=== PATIENT | male | born 1970 | race Caucasian/White ===

== ENCOUNTER 2019-10-22 12:22 | Observation (INO) | payer BC ==
[2019-10-22] MEDS ORDERED: NALOXONE 0.4 MG/ML 1 ML VIAL IV PRN (15:47)
[2019-10-22] MEDS ORDERED: HYDROcodone/APAP 5-325MG 1 EACH TAB PO PRN (15:48)
[2019-10-22] MEDS ORDERED: ACETAMINOPHEN TAB 500 MG TAB PO PRN (15:48)
[2019-10-22] MEDS ORDERED: ALPRAZolam 0.25 MG TAB PO PRN (15:48)
[2019-10-22] MEDS ORDERED: TEMAZEPAM 15 MG CAP PO PRN (15:48)
[2019-10-22] MEDS ORDERED: SODIUM CHLORIDE 0.9% 1,000 ML IV SCH (16:00)
[2019-10-22 16:09] LABS: Basophils % (A) 0 %; Eosinophils # (A) 0.1 k/uL (0-0.7); Eosinophils % (A) 1 %; HCT 47.8 % (39.0-53.0); Lymphocytes # (A) 1.6 k/uL (1.0-4.8); Lymphocytes % (A) 22 %; MCH 30.4 pg (25.0-35.0); MCHC 33.4 g/dL (31.0-37.0); Monocytes # (A) 0.3 k/uL (0-1.0); Monocytes % (A) 4 %; Neutrophils # (A) 5.1 k/uL (1.3-7.7); Neutrophils % (A) 71 %; Platelet Count 225 k/uL (150-450); RBC 5.26 m/uL (4.30-5.90); WBC 7.1 k/uL (3.8-10.6)
[2019-10-22 16:24] LABS: ALT 16 U/L (4-49); AST 22 U/L (17-59); African American GFR (CKD) >90 (>60 ml/min/1.73 sqM); Albumin 4.2 g/dL (3.5-5.0); Alkaline Phosphatase 54 U/L (38-126); Anion Gap 6 mmol/L; Blood Urea Nitrogen 11 mg/dL (9-20); Calcium 9.3 mg/dL (8.4-10.2); Carbon Dioxide 30 mmol/L (22-30); Chloride 104 mmol/L (98-107); Glucose 95 mg/dL (74-99); Non-African American GFR(CKD) >90 (>60 ml/min/1.73 sqM); Sodium 140 mmol/L (137-145); Total Protein 6.9 g/dL (6.3-8.2)
[2019-10-22 19:29] VITALS: RESP 18
--- NOTE | 2019-10-22 19:42 | CT ---
EXAMINATION TYPE: CT brain wo con DATE OF EXAM: 10/22/2019 COMPARISON: None HISTORY: Seizure like activity. CT DLP: 1070.4 mGycm Automated exposure control for dose reduction was used. ventricles have normal size. There is no mass effect nor midline shift. There is no sign of intracran ial hemorrhage. Calvarium is intact. I see no bony destructive process. IMPRESSION: Negative CT scan of the brain.
[2019-10-22] MEDS: HEPARIN SODIUM,PORCINE 5,000 UNIT/ML 1 ML VIAL SQ SCH (20:26)
--- NOTE | 2019-10-22 21:26 | HP ---
HISTORY AND PHYSICAL DATE OF SERVICE: 10/22/2019 CHIEF COMPLAINT: Chest pain and possible seizure. HISTORY OF PRESENT ILLNESS: This 49-year-old gentleman with a past medical history of no significant medical issues, to be followed by Dr. Yoan Meza in the outpatient setting apparently was complaining of chest pain which is felt in the anterior part of chest towards the epigastrium yesterday. The patient went to take a drink and apparently patient found the patient on floor and had some tonic spasms, possible seizure disorder, and currently the patient was taken to [facility] where Balta performed basic evaluations which were negative. The D-dimer is apparently slightly elevated, but CT was negative for pulmonary embolism and the patient admitted for further evaluation and treatment. The patient has history of smoking 1 pack of cigarettes per day. There is no history of fever, rigors. No history of any palpitations, hematochezia or melena at this time. PAST MEDICAL HISTORY: No history of cardiovascular illness. MEDICATIONS: None. ALLERGIES: MAYONNAISE. FAMILY HISTORY: Family history of coronary artery disease in some other relatives. SOCIAL HISTORY: History of smoking 1 pack per day. No history of alcohol. REVIEW OF SYSTEMS: ENT: No diminished vision. No diminished hearing. Cardiovascular as mentioned earlier. Respiratory: As mentioned earlier. GI no nausea or vomiting. no dysuria. Nervous system: No numbness or weakness. Allergy/Immunology: No asthma or hayfever. MUSCULOSKELETAL as mentioned earlier. Hematology/Oncology: No history of anemia. ENDOCRINE: No history of diabetes or hypothyroidism. CONSTITUTIONAL: As mentioned earlier. DERMATOLOGY: Negative. RHEUMATOLOGY negative. PSYCHIATRY as mentioned earlier. PHYSICAL EXAM: Patient is alert, oriented times three. Pulse 74. Blood pressure 117/70, respiration 17, temperature 98.2, pulse ox 98% on room air. HEENT: Conjunctivae normal. Oral mucosa moist. Neck is no jugular venous distention. No carotid bruit. No lymph node enlargement. Cardiovascular system: S1, S2 muffled. No S3, no S4. RESPIRATORY: Breath sounds diminished in the bases. No rhonchi. No crackles. ABDOMEN: Soft, nontender. No mass palpable. LEGS: No edema. No swelling. NERVOUS SYSTEM: Higher functions as mentioned earlier. Moves all 4 limbs. No focal motor-sensory deficits. LYMPHATICS: No lymph nodes palpable in the neck, axillae or groin. SKIN: No ulcer. No rashes. No bleeding. JOINTS: No active deforming arthropathy. LAB STUDIES: Total bilirubin is 2, otherwise other labs are normal. ASSESSMENT: 1. Chest pain for evaluation, possible unstable angina. 2. Rule out seizure disorder, generalized tonic-clonic. 3. 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 4. History of nicotine dependence. RECOMMENDATIONS AND DISCUSSION: In this 49-year-old gentleman who presented with multiple medical issues, we will monitor the patient closely. I recommend rule out myocardial infarction and unstable angina protocol. If the troponins are negative, we will consult Cardiology for possible stress test in the morning. I would also recommend neurology consultation because of the exact etiology of unresponsiveness and tonic spasms are not known and need to rule out seizures. Recommend EEG and CT scan of the brain also to complete the workup. Once again, the prognosis guarded. Further recommendations to follow. See orders for details. Discussed with the patient's family who understands and agrees. A copy of this dictating being forwarded to Dr. Meza who is the primary physician. MMODL / IJN: [id number] /
[2019-10-23 06:43] LABS: Amphetamine Screen,Urine Not Detected (NotDetected); Barbiturate Screen,Urine Not Detected (NotDetected); Benzodiazepines Screen,Urine Not Detected (NotDetected); Cocaine Screen,Urine Not Detected (NotDetected); Methadone Screen, Urine Not Detected (NotDetected); Opiate Screen,Urine Not Detected (NotDetected); Oxycodone Screen, Urine Not Detected (NotDetected); Phencyclidine Screen,Urine Not Detected (NotDetected); Tricyclic Antidepressant,Urine Not Detected (NotDetected); Urn Cannabinoid Scrn Not Detected (NotDetected)
--- NOTE | 2019-10-23 06:57 | P.CRDCN ---
History of Present Illness Consult date: 10/23/19 Chief complaint: Chest pain/shortness of breath History of present illness: This is a very pleasant 49-year-old gentleman who lives in [place] was transferred to [facility] for further evaluation and management. The patient doesn't have any significant past medical history of coronary artery disease, diabetes, hypertension, or dyslipidemia. He was in his usual state of health until Tuesday when he was at home and he was trying to have a drink of energy and the last thing he remember that he was laying in bed was found by his . At that point he did not seek any medical attention. The following day, on Tuesday, he was at work when he started experiencing discomfort in the mid of the chest, as a sharp/dull discomfort, without any radiation to the arms or neck or shoulders, and without any associated symptoms of shortness of breath, dizziness, heart racing, or syncope. At that point also he was experiencing shortness of breath. No sweating. He decided to go to the emergency room at [place]. In the emergency room he was seen and transferred here. The EKG revealed sinus rhythm without significant ST or T-wave abnormalities. He underwent only one set of enzymes came in to be unremarkable. The computed tomography scan of the brain did not show any acute abnormalities. Currently the patient is chest pain-free and he seems to be asymptomatic from a cardiovascular standpoint overview. No arrhythmia noted overnight. Past Medical History History of Any Multi-Drug Resistant Organisms: None Reported Past Surgical History: No Surgical Hx Reported Past Anesthesia/Blood Transfusion Reactions: No Reported Reaction Past Psychological History: No Psychological Hx Reported Smoking Status: Current every day smoker Additional Past Alcohol Use History / Comment(s): pt staets he smokes a pack- pack and half per day. Past Drug Use History: None Reported Medications and Allergies Home Medications Medication Instructions Recorded Confirmed Type No Known Home Medications 10/22/19 10/22/19 History Allergies Allergy/AdvReac Type Severity Reaction Status Date / Time [facility] Allergy Rash/Hives Verified 10/22/19 14:56 Physical Exam Vitals: Vital Signs Temp Pulse Resp BP Pulse Ox 10/23/19 04:00 97.7 F 63 18 108/64 96 10/22/19 23:27 18 10/22/19 23:16 98 F 66 18 104/51 96 10/22/19 20:00 18 10/22/19 19:28 98.1 F 63 18 126/65 95 10/22/19 16:00 98.2 F 74 17 117/70 96 10/22/19 14:30 68 14 10/22/19 14:29 98.0 F 68 14 142/81 98 Intake and Output 10/22/19 10/22/19 10/23/19 14:59 22:59 06:59 Other: Voiding Method Toilet Toilet Toilet # Voids 1 1 Weight 90.4 kg - Constitutional General appearance: no acute distress - Respiratory Respiratory: bilateral: CTA - Cardiovascular Rhythm: regular Heart sounds: normal: S1, S2 Results 10/22/19 16:00 10/22/19 16:00 Cardiac Enzymes 10/22/19 10/22/19 Range/Units 16:00 16:00 AST 22 (17-59) U/L Troponin I <0.012 (0.000-0.034) ng/mL CBC 10/22/19 Range/Units 16:00 WBC 7.1 (3.8-10.6) k/uL RBC 5.26 (4.30-5.90) m/uL Hgb 16.0 (13.0-17.5) gm/dL Hct 47.8 (39.0-53.0) % Plt Count 225 (150-450) k/uL Comprehensive Metabolic Panel 10/22/19 Range/Units 16:00 Sodium 140 (137-145) mmol/L Potassium 4.0 (3.5-5.1) mmol/L Chloride 104 (98-107) mmol/L Carbon Dioxide 30 (22-30) mmol/L BUN 11 (9-20) mg/dL Creatinine 0.95 (0.66-1.25) mg/dL Glucose 95 (74-99) mg/dL Calcium 9.3 (8.4-10.2) mg/dL AST 22 (17-59) U/L ALT 16 (4-49) U/L Alkaline Phosphatase 54 (38-126) U/L Total Protein 6.9 (6.3-8.2) g/dL Albumin 4.2 (3.5-5.0) g/dL Current Medications Generic Name Dose Route Start Last Admin Trade Name Freq PRN Reason Stop Dose Admin Acetaminophen 500 mg 10/22/19 15:48 Tylenol Tab PO Q6HR PRN Fever and/ or Pain Hydrocodone Bitart/Acetaminophen 1 each 10/22/19 15:48 [place] 5-325 PO Q6HR PRN Pain Alprazolam 0.25 mg 10/22/19 15:48 Xanax PO TID PRN Anxiety Heparin Sodium (Porcine) 5,000 unit 10/22/19 21:00 10/22/19 20:26 Heparin SQ 5,000 unit Q12HR MARJORIE Administration Sodium Chloride 1,000 mls @ 20 mls/hr 10/22/19 16:00 10/22/19 17:20 Saline 0.9% IV Not Given .Q24H MARJORIE Naloxone HCl 0.2 mg 10/22/19 15:47 Narcan IV Q2M PRN Opioid Reversal Nicotine 1 patch 10/23/19 09:00 Habitrol 21mg/24hr Patch TRANSDERM DAILY MARJORIE Pantoprazole Sodium 40 mg 10/23/19 07:30 Protonix PO AC-BRKFST MARJORIE Temazepam 15 mg 10/22/19 15:48 Restoril PO HS PRN Insomnia Intake and Output 10/22/19 10/22/19 10/23/19 14:59 22:59 06:59 Other: Voiding Method Toilet Toilet Toilet # Voids 1 1 Weight 90.4 kg Patient Weight 10/23/19 06:59 Weight 90.4 kg 10/22/19 16:00 10/22/19 16:00 Assessment and Plan Assessment: Assessment #1 an episode of loss of consciousness #2 chest discomfort which has resolved Plan #1 rule out acute coronary event. We'll follow-up with the serial cardiac enzymes #2 obtain an echocardiogram was Doppler #3 if the patient was ruled out for acute coronary event, I would pursue with a stress test #4 obtain an echocardiogram was Doppler Thank you for allowing us participate in his care
[2019-10-23] MEDS ORDERED: PANTOPRAZOLE 40 MG TABLET PO SCH (07:30)
[2019-10-23] MEDS ORDERED: NICOTINE 21MG/24HR PATCH TRANSDERM SCH (09:00)
[2019-10-23] MEDS ORDERED: DOBUTamine DRIP for NUC MED 500 MG in DEXTROSE/WATER 1 250ML.BAG IV ONE (10:51)
--- NOTE | 2019-10-23 11:30 | ECHOF ---
Referral Reason:cp MEASUREMENTS -------- HEIGHT: 182.9 cm WEIGHT: 90.3 kg BP: RVIDd: 3.2 cm (< 3.3) IVSd: 1.4 cm (0.6 - 1.1) LVIDd: 4.3 cm (3.9 - 5.3) LVPWd: 1.3 cm (0.6 - 1.1) IVSs: 1.8 cm LVIDs: 2.1 cm LVPWs: 2.1 cm LAESV Index (A-L): 33.73 ml/m Ao Diam: 3.0 cm (2.0 - 3.7) AV Cusp: 1.9 cm (1.5 - 2.6) LA Diam: 4.4 cm (2.7 - 3.8) MV EXCURSION: 12.000 mm (> 18.000) MV EF SLOPE: 74 mm/s (70 - 150) EPSS: 0.2 cm MV E Ti: 0.91 m/s MV DecT: 156 ms MV A Ti: 0.68 m/s MV E/A Ratio: 1.33 RAP: 5.00 mmHg RVSP: 27.08 mmHg FINDINGS -------- Sinus rhythm. This was a technically good study. The left ventricular size is normal. There is mild concentric left ventricular hypertrophy. Overa ll left ventricular systolic function is normal with, an EF between 60 - 65 %. The diastolic fillin g pattern is normal for the age of the patient 10.80. The right ventricle is mildly enlarged. LA is midly dilated 29-33ml/m2. The right atrial size is normal. Interatrial and interventricular septum intact. The aortic valve is trileaflet and appears structurally normal. There is no evidence of aortic regu rgitation. There is no evidence of aortic stenosis. There is trace to mild mitral regurgitation. Mild tricuspid regurgitation present. There is no evidence of pulmonary hypertension. The right v entricular systolic pressure, as measured by Doppler, is 27.08mmHg. Trace/mild (physiologic) pulmonic regurgitation. The aortic root size is normal. Normal inferior vena cava with normal inspiratory collapse consistent with estimated right atrial pre ssure of 5 mmHg. There is no pericardial effusion. CONCLUSIONS -------- 1. Sinus rhythm. 2. This was a technically good study. 3. The left ventricular size is normal. 4. There is mild concentric left ventricular hypertrophy. 5. Overall left ventricular systolic function is normal with, an EF between 60 - 65 %. 6. The diastolic filling pattern is normal for the age of the patient 10.80 7. The right ventricle is mildly enlarged. 8. LA is midly dilated 29-33ml/m2. 9. The right atrial size is normal. 10. Interatrial and interventricular septum intact. 11. The aortic valve is trileaflet and appears structurally normal. 12. There is no evidence of aortic regurgitation. 13. There is no evidence of aortic stenosis. 14. There is trace to mild mitral regurgitation. 15. Mild tricuspid regurgitation present. 16. There is no evidence of pulmonary hypertension. 17. The right ventricular systolic pressure, as measured by Doppler, is 27.08mmHg. 18. Trace/mild (physiologic) pulmonic regurgitation. 19. The aortic root size is normal. 20. Normal inferior vena cava with normal inspiratory collapse consistent with estimated right atrial pressure of 5 mmHg. 21. There is no pericardial effusion. ZIPPER SLIDE ATTACHER: Mar Marino RDCS
[2019-10-23 11:46] VITALS: BP 124/76; PULSE 74; TEMP 97.7
--- NOTE | 2019-10-23 13:02 | P.CNNES ---
History of Present Illness Consult date: 10/23/19 Reason for Consult: Possible seizure-like event Chief complaint: "Got stiff and jerked around for 10 seconds" History of Present Illness: HISTORY OF PRESENT ILLNESS: Thank you for allowing me to evaluate Mr. Shantal Malik. Mr. Malik is a 49 year-old ambidextrous man with no known significant PMHx who presented to [facility] for chest pain, consulting Neurology for a possible seizure-like event. On Tuesday, patient was sitting on a couch watching TV when his noticed patient become "stiff and jerk around" for several seconds before he basically came back to baseline. There was no tongue biting, urinary/bowel incontinence or postical state. Patient has never had similar symptoms in the past. Denies any recent sickness, fever, headache, nausea, vomiting, dizziness, double/blurry vision, weakness or tingling. Patient is not aware of his history, doesn't believe he was ever hospitalized as a baby or child, and denies any recent fall or trauma to the head. PAST MEDICAL HISTORY: None HOME MEDICATIONS: None ALLERGIES: Mayonnaise SOCIAL HISTORY: Current everyday smoker. 1ppd for many years. Denies EtOH/drug abuse history FAMILY HISTORY: No hx of seizures in family REVIEW OF SYSTEMS: The 14 systems are reviewed and no additional points are identified compared to the review of systems documented history and physical PHYSICAL EXAMINATION: VITAL SIGNS: T 97.7 HR 74 RR 18 BP 124/72 O2 sat 97% on RA GEN.: NAD, pleasant and cooperative HEENT: NCAT, sclera without icterus NECK: Supple SKIN AND EXTREMITIES: Warm to touch, no edema NEURO: MENTAL STATUS: Patient alert and oriented to self, place, time. Able to name the current president. Speech fluent, able to name and repeat, following all commands readily. No right and left disorientation, neglect. CRANIAL NERVES II THROUGH XII: II: Pupils are equal and reactive to light symmetrically. No afferent pupillary defect. Visual valdez are intact. III, IV, : No ptosis. Extraocular movements full. No nystagmus. V: Facial sensation intact from V1-3. VII. No clear facial asymmetry. VIII: Hearing intact to finger rub bilaterally. IX, X: Symmetric palate elevation. XI: Shoulder shrug intact. XII: Tongue midline without fasciculation or atrophy. MOTOR: Normal bulk/tone. No pronator drift or tremor. Strength is 5/5 throughout all 4 extremities. SENSORY: Intact to light touch in all 4 extremities. Romberg is negative. REFLEXES: 2+ throughout. Toes are downgoing COORDINATION: Finger to nose intact. No dysmetria. GAIT: Narrow-based and stable. Able to toe/heel/tandem walk DIAGNOSTIC TESTING: LABORATORY: WBC 7.1 Hgb 16.0 platelet 225 Na 140 K 4.9 Cl 104 CO2 30 BUN 11 Cr 0.95 AST 22 ALT 16 AlkPhos 54 trop <0.012 utox negative IMAGING: CT Head w/o contrast 10/22/19: No acute intracranial finding ASSESSMENT/RECOMMENDATIONS: 49 year-old ambidextrous man with no known significant PMHx who presented to [facility] for chest pain, consulting Neurology for a possible seizure- like event. Patient with no EtOH abuse history. No recent sickness or lack of sleep. Patient works with wires and electricity, and if patient were to have a similar event, he could get severely injured. This is patient first life-time episode, only lasted for several seconds with no postictal state, but considering patient's workplace, would recommend starting patient on low dose AED (Keppra 750mg BID). If patient event-free for 6 months, medication should be titrated down. Patient needs follow up with outpatient Neurologist within 3-4 weeks of discharge. Discussed seizure precautions with patient. Will obtain routine EEG today. Okay for patient to be discharged after EEG. Past Medical History History of Any Multi-Drug Resistant Organisms: None Reported Past Surgical History: No Surgical Hx Reported Past Anesthesia/Blood Transfusion Reactions: No Reported Reaction Past Psychological History: No Psychological Hx Reported Smoking Status: Current every day smoker Additional Past Alcohol Use History / Comment(s): pt staets he smokes a pack- pack and half per day. Past Drug Use History: None Reported Medications and Allergies Home Medications Medication Instructions Recorded Confirmed Type No Known Home Medications 10/22/19 10/22/19 History Allergies Allergy/AdvReac Type Severity Reaction Status Date / Time [facility] Allergy Rash/Hives Verified 10/22/19 14:56 Physical Examination - Vital Signs Vital Signs: Vital Signs Temp Pulse Resp BP Pulse Ox 10/23/19 11:45 97.7 F 74 18 124/76 97 10/23/19 08:00 54 L 18 10/23/19 07:05 97.4 F L 54 L 18 119/70 99 10/23/19 04:00 97.7 F 63 18 108/64 96 10/22/19 23:27 18 10/22/19 23:16 98 F 66 18 104/51 96 10/22/19 20:00 18 10/22/19 19:28 98.1 F 63 18 126/65 95 10/22/19 16:00 98.2 F 74 17 117/70 96 10/22/19 14:30 68 14 10/22/19 14:29 98.0 F 68 14 142/81 98 Intake and Output 10/22/19 10/23/19 10/23/19 22:59 06:59 14:59 Other: Voiding Method Toilet Toilet Toilet # Voids 1 1 Weight 199 kg Results - Laboratory Findings CBC and BMP: 10/22/19 16:00 10/22/19 16:00 Abnormal Lab Findings: Abnormal Labs 10/22/19 16:00 Total Bilirubin 2.0 H
--- NOTE | 2019-10-23 13:38 | ECHOS ---
STRESS ECHOCARDIOGRAM DOBUTAMINE STRESS ECHOCARDIOGRAM DATE OF SERVICE: 10/23/2019 INDICATIONS: Chest pain. MEDICATIONS: BASELINE HEART RATE: 82 BASELINE BLOOD PRESSURE: 127/86 MAXIMUM HEART RATE: 135 MAXIMUM BLOOD PRESSURE: 154/49 85% MPHR: 145 100% MPHR: 171 METS: MAXIMUM STAGE REACHED: TOTAL EXERCISE TIME: CLINICAL INFORMATION: STRESS DATA: Heart rate 82, pressure is 127/86 mmHg. Baseline EKG showed sinus mechanism. Dobutamine infusion at a dose of 10 mcg/kg per minute was initiated and increased to 30 mcg/kg per minute per protocol. Max heart rate was 135, which is 154/49 mmHg. Clinically the patient did not have any symptoms of chest pain or chest discomfort and the EKG did not show any significant ST or T-wave abnormalities concerning for ischemia. ECHOCARDIOGRAM IMAGES: On echocardiogram images from parasternal long axis view, parasternal short axis view, apical 4 chamber apical 2 chamber were obtained as the baseline images, at low dose dobutamine infusion, at peak heart rate as well as on recovery. The echocardiogram images did show good augmentation in the left ventricular systolic function without any evidence of wall motion abnormalities concerning for ischemia. CONCLUSION: 1. Normal EKG in response to dobutamine. 2. Normal echocardiogram in response to dobutamine. MMODL / IJN: [id number] /
[2019-10-23] MEDS: HEPARIN SODIUM,PORCINE 5,000 UNIT/ML 1 ML VIAL SQ SCH (14:22)
--- NOTE | 2019-10-23 21:47 | DS ---
DISCHARGE SUMMARY DATE OF SERVICE: 10/23/2019. FINAL DIAGNOSES: 1. Chest pain possible musculoskeletal, negative stress test. 2. Possible acute generalized seizure disorder. 3. 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 4. History of nicotine dependence. DISCHARGE DISPOSITION: The patient will be discharged in stable condition with guarded prognosis after clearance by Cardiology, Neurology. HISTORY OF PRESENT ILLNESS: This 49-year-old gentleman with a past medical history of no significant medical history to be followed by Dr. Yoan Meza in the outpatient setting was admitted with chest pain. The patient also had episodes of seizure-like episode prior to the day of admission. The patient was referred from elsewhere from [facility]. The patient was monitored closely and cardiology performed a stress test which was negative and Neurology saw the patient sanitation officer and recommended antiepileptic treatment on empiric basis, Keppra and as well as outpatient followup EEG is also being arranged. On exam, vitals are stable. Cardiovascular: S1, S2. Abdomen soft. Nervous system: No focal deficits. DISCHARGE ADVICE AND MEDICATIONS: 1. Diet is cardiac diet. 2. Activity limited until followup. 3. No driving for 6 months. 4. Follow up with Dr. Yoan Meza in 1 week. 5. Follow up with Dr. Kay, cardiology as recommended. 6. Follow up with Dr. Antoine as recommended. MEDICATIONS: Keppra 750 mg p.o. b.i.d. MMCHIPL / LUKEN: [id number] /
--- NOTE | 2019-10-23 23:52 | EEG ---
ELECTROENCEPHALOGRAM REPORT DATE OF PROCEDURE: 10/23/2019 ELECTROENCEPHALOGRAM (EEG) REPORT: TECHNIQUE: A routine 18-channel EEG was performed with video using the 10/20 international electrode placement system. HISTORY: None known. MEDICATIONS: Unknown. STUDY DURATION: 24 minutes. FINDINGS: BACKGROUND: The background activity consisted of 9 to 10 Hz rhythmic waveforms symmetrically distributed over both posterior quadrants. ACTIVATION: Hyperventilation: Not performed. Photic stimulation: Symmetric driving seen. Sleep: Stages I and II sleep noted. ABNORMALITIES: None. Please note that one channel of this EEG was dedicated to EKG. It demonstrated a sinus rhythm. IMPRESSION: Normal EEG. No epileptiform activity was present. No seizures were recorded. MMODL / IJN: [id number] / [facility] CENTERElizabeth
== END 2019-10-23 15:53 | disposition home or self-care (01) ==
LOC: 1SOBS 14:17
PROVIDERS: ADMIT Hospitalist; ATTEND Hospitalist
DX: R07.89 Other chest pain (principal); F17.200 Nicotine dependence, unspecified, uncomplicated; Z82.49 Family history of ischemic heart disease and other diseases of the circulatory system; R79.89 Other specified abnormal findings of blood chemistry; Z91.018 Allergy to other foods
CPT/HCPCS: 93005; 95816; 93306; 93351; 80053; 84484 ×2; 85025; 80306; 70450; G0378 ×2; G0379; J1250; J1644